=== PATIENT | female | born 1980 | race Caucasian/White ===

== ENCOUNTER 2018-06-05 20:22 | Emergency (ER) | payer MEDICAID ==
[2018-06-05] MEDS ORDERED: Sodium Chloride 0.9% 10 ML Syringe FLUSH PRN (21:07)
[2018-06-05] MEDS ORDERED: Sodium Chloride 0.9% 1,000 ML IV ONE ×2 (21:07→21:46)
[2018-06-05] MEDS ORDERED: Ondansetron 4 MG Tab.DIS PO ONE (21:08)
[2018-06-05] MEDS ORDERED: Ondansetron 4 MG Tab.DIS ONE (21:22)
[2018-06-05] MEDS ORDERED: HYDROmorphone 1 MG/ML Syringe IVPUSH ONE (23:46)
[2018-06-05] MEDS ORDERED: HYDROmorphone 1 MG/ML Syringe ONE (23:50)
--- NOTE | 2018-06-06 01:26 | OR ---
DATE OF PROCEDURE: 06/05/2018 This 38-year-old patient presented to the emergency room with headache, fever, stiff neck. I have been asked to do a spinal tap. I discussed the risks and benefits with the patient. She understands these and an informed consent has been signed. She was placed in a lateral position. Her back was prepped with Betadine x3. A 22-gauge spinal needle was placed at approximately L3-4. Clear spinal fluid was noted. Four test tubes were given, 0.5 to 1 mL of spinal fluid. Her pressures were then measured and they measure at 27. The spinal needle was then removed. A Band-Aid applied to the puncture site. The patient tolerated this procedure well. She suffered no complaints. NAME OF PROCEDURE: Spinal tap for diagnosis. The patient's vital signs are stable. Her color is pink. She is alert, oriented. Shows no signs of complications from the procedure. Kentrell Thomas CRNA /[id number]
[2018-06-06] MEDS ORDERED: cefTRIAXone 2 GM in Sodium Chloride 0.9% 50 ML IV ONE (03:48)
[2018-06-06] MEDS ORDERED: Acyclovir 500 MG/10 ML SDV IV ONE (03:54)
[2018-06-06] MEDS ORDERED: Sodium Chloride 0.9% 250 ML ONE (04:10)
[2018-06-06] MEDS ORDERED: Dextrose 5% in Water 250 ML ONE (04:11)
[2018-06-06] MEDS ORDERED: Vancomycin 1 GM SDV ONE (04:11)
--- NOTE | 2018-06-06 04:54 | EDM.PDOC ---
ED HPI GENERAL MEDICAL PROBLEM - General Chief Complaint: General Stated Complaint: fever, cant walk well, possible lymes Time Seen by Provider: 06/05/18 20:35 Source of Information: Reports: Patient History Limitations: Reports: No Limitations - History of Present Illness INITIAL COMMENTS - FREE TEXT/NARRATIVE: Headache for 4 days. Hx migraines but this is worse. Seen in clinic this am and put on doxycycline. Hasn't taken any because she can't tolerate it. Can't take po. CBC in clinic (looked hemo-concentrated) and UA were normal. Lymes test sent. She feels horrible and thinks she just can't go on. No specific symptoms beside headache. Does have rajan chills but denies fever. 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 Patient returned to clinic on 09/15/2015 with worsening of abscess. Patient had ultrasound, I&D with prescription of bactrim PO BID. - Infectious Disease History Infectious Disease History: Reports: Chicken Pox - Past Surgical History HEENT Surgical History: Reports: Adenoidectomy, Tonsillectomy GI Surgical History: Reports: Appendectomy Female Surgical History: Reports: Section, Tubal Ligation Social & Family History - Tobacco Use Smoking Status *Q: Current Every Day Smoker Years of Tobacco use: 30 Packs/Tins Daily: 0.5 - Caffeine Use Caffeine Use: Reports: Coffee, Soda - Recreational Drug Use Recreational Drug Use: No ED ROS GENERAL - Review of Systems Review Of Systems: See Below Constitutional: Reports: Chills, Malaise HEENT: Reports: No Symptoms Respiratory: Reports: No Symptoms Cardiovascular: Reports: No Symptoms Endocrine: Reports: No Symptoms GI/Abdominal: Reports: No Symptoms : Reports: No Symptoms Musculoskeletal: Reports: Other (general body aches) Skin: Reports: No Symptoms Neurological: Reports: Headache Psychiatric: Reports: No Symptoms Hematologic/Lymphatic: Reports: No Symptoms Immunologic: Reports: No Symptoms ED EXAM, GENERAL - Physical Exam Exam: See Below Exam Limited By: No Limitations General Appearance: Alert, WD/WN, Moderate Distress Eye Exam: Bilateral Eye: EOMI, PERRL Ears: Normal External Exam, Normal TMs Nose: Normal Inspection Throat/Mouth: Normal Inspection, Normal Oropharynx Head: Atraumatic Neck: Supple, Other (Not stiff but complains of neck and back pain when flexing neck) Respiratory/Chest: Lungs Clear Cardiovascular: Regular Rate, Rhythm, No Murmur Peripheral Pulses: 2+: Radial (L), Radial (R) GI/Abdominal: Soft, Non-Tender Back Exam: Normal Inspection Extremities: Normal Inspection Neurological: Alert, Oriented, CN II-XII Intact, Normal Cognition, No Motor/ Sensory Deficits Psychiatric: Normal Affect, Normal Mood Skin Exam: Warm, Dry, Intact Course - Vital Signs Last Recorded V/S: Last Vital Signs Temp 37.3 C 06/06/18 02:08 Pulse 66 06/06/18 02:30 Resp 16 06/06/18 02:30 BP 99/48 L 06/06/18 02:30 Pulse Ox 95 06/06/18 02:30 - Orders/Labs/Meds Orders: Active Orders 24 hr Category Date Time Status Chest 2V [CR] Urgent Exams 06/05/18 21:05 Taken Head wo Cont [CT] Stat Exams 06/05/18 23:00 Taken CULTURE BLOOD [BC] Urgent Lab 06/05/18 21:05 Received CULTURE BLOOD [BC] Urgent Lab 06/05/18 21:05 Received CULTURE CSF + SMEAR [RM] Stat Lab 06/06/18 00:15 Results ENTEROVIRUS RT-PCR Routine Lab 06/06/18 04:01 Ordered HSV 1/2 PCR Routine Lab 06/06/18 03:59 Ordered UA W/MICROSCOPIC [URIN] Urgent Lab 06/05/18 22:59 Ordered [place] VIRUS ANTIBODY, CSF Routine Lab 06/06/18 04:00 Ordered Sodium Chloride 0.9% [Saline Flush] Med 06/05/18 21:07 Active 10 ml FLUSH ASDIRECTED PRN Vancomycin 1,000 mg Med 06/06/18 03:50 Active Dextrose 5% in Water 250 ml IV ONETIME Blood Culture x2 Reflex Set [OM.PC] Urgent Oth 06/05/18 21:06 Ordered Saline Lock Insert [OM.PC] Urgent Oth 06/05/18 21:07 Ordered Medication Orders Vancomycin HCl 1,000 mg/ (Dextrose/Water) 250 mls @ 167 mls/hr IV ONETIME ONE Stop: 06/06/18 05:19 Sodium Chloride (Saline Flush) 10 ml FLUSH ASDIRECTED PRN PRN Reason: Keep Vein Open Last Admin: 06/05/18 21:48 Dose: 10 ml Labs: Laboratory Tests 06/05/18 06/05/18 06/05/18 Range/Units 21:05 21:05 21:05 WBC 7.5 (4.5-11.0) K/uL RBC 5.28 (3.30-5.50) M/uL Hgb 16.6 H (12.0-15.0) g/dL Hct 47.0 (36.0-48.0) % MCV 89 (80-98) fL MCH 31 (27-31) pg MCHC 35 (32-36) % Plt Count 198 (150-400) K/uL Neut % (Auto) 67 H (36-66) % Lymph % (Auto) 26 (24-44) % Mcculloch % (Auto) 6 (2-6) % Eos % (Auto) 1 L (2-4) % Baso % (Auto) 0 (0-1) % Sodium 130 L (140-148) mmol/L Potassium 3.9 (3.6-5.2) mmol/L Chloride 98 L (100-108) mmol/L Carbon Dioxide 20 L (21-32) mmol/L Anion Gap 15.9 H (5.0-14.0) mmol/L BUN 5 L (7-18) mg/dL Creatinine 0.7 (0.6-1.0) mg/dL Est Cr Clr Drug Dosing 96.13 mL/min Estimated GFR (MDRD) > 60 (>60) Glucose 102 (74-106) mg/dL Lactic Acid 1.1 (0.4-2.0) mmol/L Calcium 8.5 (8.5-10.1) mg/dL Total Bilirubin 0.8 D (0.2-1.0) mg/dL AST 14 L (15-37) U/L ALT 21 (12-78) U/L Alkaline Phosphatase 74 (46-116) U/L Total Protein 6.9 (6.4-8.2) g/dL Albumin 3.4 (3.4-5.0) g/dL Globulin 3.5 (2.3-3.5) g/dL Albumin/Globulin Ratio 1.0 L (1.2-2.2) Urine Color Urine Appearance Urine pH (4.5-8.0) Ur Specific Dewey (1.008-1.030) Urine Protein (NEGATIVE) mg/dL Urine Glucose (UA) (NEGATIVE) mg/dL Urine Ketones (NEGATIVE) mg/dL Urine Occult Blood (NEGATIVE) Urine Nitrite (NEGATIVE) Urine Bilirubin (NEGATIVE) Urine Urobilinogen (NORMAL) mg/dL Ur Leukocyte Esterase (NEGATIVE) Urine RBC (0-5) Urine WBC (0-5) Ur Epithelial Cells Amorphous Sediment Urine Bacteria Urine Mucus CSF Tube Number CSF Volume mls CSF Appearance (CLEAR) CSF Color (COLORLESS) CSF WBC (0-5) /ul CSF RBC (0-0) /ul CSF Mononuclear Cells (54-100) % CSF Polymorphonuclear (0-7) % CSF Glucose (40-70) mg/dL CSF Total Protein (15-45) mg/dL 06/05/18 06/06/18 06/06/18 Range/Units 22:59 00:15 00:15 WBC (4.5-11.0) K/uL RBC (3.30-5.50) M/uL Hgb (12.0-15.0) g/dL Hct (36.0-48.0) % MCV (80-98) fL MCH (27-31) pg MCHC (32-36) % Plt Count (150-400) K/uL Neut % (Auto) (36-66) % Lymph % (Auto) (24-44) % Mcculloch % (Auto) (2-6) % Eos % (Auto) (2-4) % Baso % (Auto) (0-1) % Sodium (140-148) mmol/L Potassium (3.6-5.2) mmol/L Chloride (100-108) mmol/L Carbon Dioxide (21-32) mmol/L Anion Gap (5.0-14.0) mmol/L BUN (7-18) mg/dL Creatinine (0.6-1.0) mg/dL Est Cr Clr Drug Dosing mL/min Estimated GFR (MDRD) (>60) Glucose (74-106) mg/dL Lactic Acid (0.4-2.0) mmol/L Calcium (8.5-10.1) mg/dL Total Bilirubin (0.2-1.0) mg/dL AST (15-37) U/L ALT (12-78) U/L Alkaline Phosphatase (46-116) U/L Total Protein (6.4-8.2) g/dL Albumin (3.4-5.0) g/dL Globulin (2.3-3.5) g/dL Albumin/Globulin Ratio (1.2-2.2) Urine Color Yellow Urine Appearance Clear Urine pH 9.0 H (4.5-8.0) Ur Specific Dewey 1.020 (1.008-1.030) Urine Protein Negative (NEGATIVE) mg/dL Urine Glucose (UA) Normal (NEGATIVE) mg/dL Urine Ketones 15 H (NEGATIVE) mg/dL Urine Occult Blood Negative (NEGATIVE) Urine Nitrite Negative (NEGATIVE) Urine Bilirubin Negative (NEGATIVE) Urine Urobilinogen Normal (NORMAL) mg/dL Ur Leukocyte Esterase Negative (NEGATIVE) Urine RBC 0-5 (0-5) Urine WBC 0-5 (0-5) Ur Epithelial Cells Rare Amorphous Sediment Not seen Urine Bacteria Few Urine Mucus Not seen CSF Tube Number 2 CSF Volume 1 mls CSF Appearance Clear (CLEAR) CSF Color Colorless (COLORLESS) CSF WBC 181 H (0-5) /ul CSF RBC 4 H (0-0) /ul CSF Mononuclear Cells 75 (54-100) % CSF Polymorphonuclear 25 H (0-7) % CSF Glucose 47 (40-70) mg/dL CSF Total Protein (15-45) mg/dL 06/06/18 Range/Units 00:15 WBC (4.5-11.0) K/uL RBC (3.30-5.50) M/uL Hgb (12.0-15.0) g/dL Hct (36.0-48.0) % MCV (80-98) fL MCH (27-31) pg MCHC (32-36) % Plt Count (150-400) K/uL Neut % (Auto) (36-66) % Lymph % (Auto) (24-44) % Mcculloch % (Auto) (2-6) % Eos % (Auto) (2-4) % Baso % (Auto) (0-1) % Sodium (140-148) mmol/L Potassium (3.6-5.2) mmol/L Chloride (100-108) mmol/L Carbon Dioxide (21-32) mmol/L Anion Gap (5.0-14.0) mmol/L BUN (7-18) mg/dL Creatinine (0.6-1.0) mg/dL Est Cr Clr Drug Dosing mL/min Estimated GFR (MDRD) (>60) Glucose (74-106) mg/dL Lactic Acid (0.4-2.0) mmol/L Calcium (8.5-10.1) mg/dL Total Bilirubin (0.2-1.0) mg/dL AST (15-37) U/L ALT (12-78) U/L Alkaline Phosphatase (46-116) U/L Total Protein (6.4-8.2) g/dL Albumin (3.4-5.0) g/dL Globulin (2.3-3.5) g/dL Albumin/Globulin Ratio (1.2-2.2) Urine Color Urine Appearance Urine pH (4.5-8.0) Ur Specific Dewey (1.008-1.030) Urine Protein (NEGATIVE) mg/dL Urine Glucose (UA) (NEGATIVE) mg/dL Urine Ketones (NEGATIVE) mg/dL Urine Occult Blood (NEGATIVE) Urine Nitrite (NEGATIVE) Urine Bilirubin (NEGATIVE) Urine Urobilinogen (NORMAL) mg/dL Ur Leukocyte Esterase (NEGATIVE) Urine RBC (0-5) Urine WBC (0-5) Ur Epithelial Cells Amorphous Sediment Urine Bacteria Urine Mucus CSF Tube Number CSF Volume mls CSF Appearance (CLEAR) CSF Color (COLORLESS) CSF WBC (0-5) /ul CSF RBC (0-0) /ul CSF Mononuclear Cells (54-100) % CSF Polymorphonuclear (0-7) % CSF Glucose (40-70) mg/dL CSF Total Protein 51.5 H (15-45) mg/dL Meds: Medications Generic Name Dose Route Start Last Admin Trade Name Freq PRN Reason Stop Dose Admin Vancomycin HCl 1,000 mg/ 250 mls @ 167 mls/hr 06/06/18 03:50 Dextrose/Water IV 06/06/18 05:19 ONETIME ONE Sodium Chloride 10 ml 06/05/18 21:07 06/05/18 21:48 Saline Flush FLUSH 10 ml ASDIRECTED PRN Administration Keep Vein Open Discontinued Medications Generic Name Dose Route Start Last Admin Trade Name Freq PRN Reason Stop Dose Admin Acyclovir 800 mg 06/06/18 03:54 Zovirax 10 mg/kg (800 mg) 06/06/18 03:55 IV ONETIME ONE Hydromorphone HCl 1 mg 06/05/18 23:46 06/05/18 23:52 Dilaudid IVPUSH 06/05/18 23:47 1 mg ONETIME ONE Administration Sodium Chloride 1,000 mls @ 999 mls/hr 06/05/18 21:07 06/05/18 21:48 Normal Saline IV 06/05/18 22:07 999 mls/hr .BOLUS ONE Administration Sodium Chloride 1,000 mls @ 999 mls/hr 06/05/18 21:46 06/05/18 23:47 Normal Saline IV 06/05/18 22:46 Not Given .BOLUS ONE Ceftriaxone Sodium 2 gm/ 50 mls @ 100 mls/hr 06/06/18 03:48 06/06/18 04:31 Sodium Chloride IV 06/06/18 04:17 100 mls/hr ONETIME ONE Administration Sodium Chloride Confirm 06/06/18 04:10 06/06/18 04:33 Normal Saline Administered 06/06/18 04:11 Not Given Dose 250 mls @ as directed .ROUTE .STK-MED ONE Dextrose/Water Confirm 06/06/18 04:11 06/06/18 04:33 Dextrose 5% In Water Administered 06/06/18 04:12 Not Given Dose 250 mls @ as directed .ROUTE .STK-MED ONE Ondansetron HCl 4 mg 06/05/18 21:08 06/05/18 21:48 Zofran Odt PO 06/05/18 21:09 4 mg ONETIME ONE Administration Vancomycin HCl Confirm 06/06/18 04:11 06/06/18 04:33 Vancomycin Administered 06/06/18 04:12 Not Given Dose 1 gm .ROUTE .[employer] ONE - Radiology Interpretation Free Text/Narrative:: CXR nothing acute Head CT 10 cm anneurysm in RT MCA area. Unable to view this. Otherwise neg CT - Re-Assessments/Exams Free Text/Narrative Re-Assessment/Exam: 06/06/18 04:56 This lady was hydrated. Head CT done. Seemed LP would be difficult due to muscle pain and some obesity so Anesthesia requested to do LP. This was done and showed clear fluid with OP 27 cm CSF cell count shows 180 WBC's with 75% mononuclears and 25% poly's slight elevation protein. No bacteria on Gm stain. glucose noted. Culture sent. Hostpitalist service felt she shouldn't be cared for here since ICU closed Discussed with DR Combs at [facility] and he accepted patient. At his direction started IV Rocephin, Acyclovir and Vanc. (Pt says she might have had a pcn rash as a young child but that's all she recalls) Additional CSF studies for HSV and enterovirus. QNS fluid for W Nile. Departure - Departure Time of Disposition: 05:03 Disposition: DC/Tfer to Acute Hospital 02 Condition: Serious Clinical Impression: Meningitis - Discharge Information Referrals: Dulce Hickey CNM [Primary Care Provider] - - My Orders Last 24 Hours: My Active Orders 06/05/18 21:05 Chest 2V [CR] Urgent CULTURE BLOOD [BC] Urgent CULTURE BLOOD [BC] Urgent 06/05/18 21:06 Blood Culture x2 Reflex Set [OM.PC] Urgent 06/05/18 21:07 Sodium Chloride 0.9% [Saline Flush] 10 ml FLUSH ASDIRECTED PRN Saline Lock Insert [OM.PC] Urgent 06/05/18 22:59 UA W/MICROSCOPIC [URIN] Urgent 06/05/18 23:00 Head wo Cont [CT] Stat 06/06/18 00:15 CULTURE CSF + SMEAR [RM] Stat 06/06/18 03:50 Vancomycin 1,000 mg Dextrose 5% in Water 250 ml IV ONETIME 06/06/18 03:59 HSV 1/2 PCR Routine 06/06/18 04:00 [place] VIRUS ANTIBODY, CSF Routine 06/06/18 04:01 ENTEROVIRUS RT-PCR Routine - Assessment/Plan Last 24 Hours: My Active Orders 06/05/18 21:05 Chest 2V [CR] Urgent CULTURE BLOOD [BC] Urgent CULTURE BLOOD [BC] Urgent 06/05/18 21:06 Blood Culture x2 Reflex Set [OM.PC] Urgent 06/05/18 21:07 Sodium Chloride 0.9% [Saline Flush] 10 ml FLUSH ASDIRECTED PRN Saline Lock Insert [OM.PC] Urgent 06/05/18 22:59 UA W/MICROSCOPIC [URIN] Urgent 06/05/18 23:00 Head wo Cont [CT] Stat 06/06/18 00:15 CULTURE CSF + SMEAR [RM] Stat 06/06/18 03:50 Vancomycin 1,000 mg Dextrose 5% in Water 250 ml IV ONETIME 06/06/18 03:59 HSV 1/2 PCR Routine 06/06/18 04:00 [place] VIRUS ANTIBODY, CSF Routine 06/06/18 04:01 ENTEROVIRUS RT-PCR Routine
[2018-06-06 05:25] VITALS: BP 108/53
--- NOTE | 2018-06-06 08:26 | CR ---
CHEST: 2 view CLINICAL HISTORY:Chest pain COMPARISON:2006 FINDINGS: Heart size and pulmonary vascularity is normal. Lung day are clear.. IMPRESSION: No acute cardiopulmonary process or significant change from prior study
[2018-06-08 20:06] LABS: HSV-1 DNA Negative (Negative); HSV-2 DNA Negative (Negative)
== END 2018-06-06 05:24 ==
LOC: JP.ED 20:22
DX: G03.9 Meningitis, unspecified (principal); F17.210 Nicotine dependence, cigarettes, uncomplicated; Z88.0 Allergy status to penicillin; Z88.1 Allergy status to other antibiotic agents; Z88.8 Allergy status to other drugs, medicaments and biological substances
CPT/HCPCS: 36415; 70450; 71046; 80053; 81001; 82945; 83605; 84157; 85025; 87040; 87070; 87205; 87529; 89050; 96361; 96365; 96367; 96368; 96375; 99285; A9270; J0133; J0696; J1170; J3370; J7030; J7050; J7060; 87498

== ENCOUNTER 2018-06-27 16:28 | Emergency (ER) | payer MEDICAID ==
[2018-06-27] MEDS ORDERED: LORazepam 2 MG/ML SDV IVPUSH ONE (19:43)
[2018-06-27] MEDS ORDERED: HYDROmorphone 0.5 MG/0.5 ML Syringe IVPUSH ONE (19:43)
[2018-06-27] MEDS ORDERED: Sodium Chloride 0.9% 10 ML Syringe FLUSH PRN (19:44)
[2018-06-27 19:55] VITALS: BP 151/93
[2018-06-27] MEDS ORDERED: Sodium Chloride 0.9% 1,000 ML IV SCH (20:00)
[2018-06-27] MEDS ORDERED: niCARdipine HCl 25 MG in Sodium Chloride 0.9% 240 ML IV SCH (20:00)
--- NOTE | 2018-06-27 20:00 | EDM.PDOC ---
ED HPI GENERAL MEDICAL PROBLEM - General Chief Complaint: Headache Stated Complaint: HEADACHE Time Seen by Provider: 06/27/18 18:20 Source of Information: Reports: Patient, Family History Limitations: Reports: No Limitations - History of Present Illness INITIAL COMMENTS - FREE TEXT/NARRATIVE: 38-year-old female with a known cerebral aneurysm and recent treatment for meningitis has had 2 days without headache but redeveloped her headache today. No neurologic symptoms other than the headache. She is very anxious and scared, they are going to fix the aneurysm but not until the meningitis is treated. Onset: Sudden (Headache began fairly suddenly earlier this afternoon, 6-7 hours ago) Severity: Moderate Associated Symptoms: Denies: Nausea/Vomiting Headache Pain Score (Numeric/FACES): 10 - Related Data Allergies Allergy/AdvReac Type Severity Reaction Status Date / Time Penicillins Allergy Severe Rash Verified 06/27/18 18:22 amoxicillin Allergy Rash Verified 06/27/18 18:22 phenobarbital Allergy Rash Verified 06/27/18 18:22 Home Meds: Home Meds NK [No Known Home Meds] 06/27/18 [History] Past Medical History HEENT History: Reports: Impaired Vision Respiratory History: Reports: Asthma Genitourinary History: Reports: UTI, Recurrent 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 meningitis Psychiatric History: Reports: Anxiety, Bipolar, Depression, Panic Attack, Psych Hospitalization(s), PTSD, Suicide Attempt Endocrine/Metabolic History: Reports: Diabetes, Gestational Dermatologic History: Reports: Eczema, Other (See Below) Other Dermatologic History: recent treatment for left thigh abscess started on 09/12/2015 with clinic visit with no new prescriptions or interventions completed. Patient returned to clinic on 09/15/2015 with worsening of abscess. Patient had ultrasound, I&D with prescription of bactrim PO BID. - Infectious Disease History Infectious Disease History: Reports: Chicken Pox - Past Surgical History HEENT Surgical History: Reports: Adenoidectomy, Tonsillectomy GI Surgical History: Reports: Appendectomy Female Surgical History: Reports: Section, Tubal Ligation Social & Family History - Tobacco Use Smoking Status *Q: Former Smoker Used Tobacco, but Quit: Yes Month/Year Tobacco Last Used: 3 weeks ago - Caffeine Use Caffeine Use: Reports: Coffee, Soda - Recreational Drug Use Recreational Drug Use: No ED ROS GENERAL - Review of Systems Review Of Systems: See Below Constitutional: Denies: Fever, Chills HEENT: Denies: Vision Change Respiratory: Denies: Shortness of Breath GI/Abdominal: Denies: Abdominal Pain, Nausea, Vomiting Neurological: Reports: Dizziness, Headache. Denies: Paresthesia, Change in Speech Psychiatric: Reports: Anxiety - Physical Exam Exam: See Below Exam Limited By: No Limitations General Appearance: Alert, Anxious Eye Exam: Bilateral Eye: EOMI Head Exam: Atraumatic Respiratory/Chest: No Respiratory Distress Cardiovascular: Regular Rate, Rhythm Neuro Exam (Abbreviated): Alert, Oriented, No Motor/Sensory Deficits Extremities: No: Pedal Edema Psychiatric: Anxious Skin Exam: Warm, Dry Course - Vital Signs Last Recorded V/S: Last Vital Signs Temp 98.0 F 06/27/18 19:54 Pulse 79 06/27/18 19:54 Resp 18 06/27/18 19:54 BP 151/93 H 06/27/18 19:54 Pulse Ox 98 06/27/18 19:54 - Orders/Labs/Meds Orders: Active Orders 24 hr Category Date Time Status Head wo Cont [CT] Stat Exams 06/27/18 18:57 Taken Saline Lock Insert [OM.PC] Routine Oth 06/27/18 19:44 Ordered Labs: Laboratory Tests 06/27/18 06/27/18 Range/Units 19:14 19:14 WBC 7.1 (4.5-11.0) K/uL RBC 5.04 (3.30-5.50) M/uL Hgb 15.7 H (12.0-15.0) g/dL Hct 46.5 (36.0-48.0) % MCV 92 (80-98) fL MCH 31 (27-31) pg MCHC 34 (32-36) % Plt Count 241 (150-400) K/uL Neut % (Auto) 56 (36-66) % Lymph % (Auto) 32 (24-44) % Blaine % (Auto) 7 H (2-6) % Eos % (Auto) 3 (2-4) % Baso % (Auto) 2 H (0-1) % Sodium 138 L (140-148) mmol/L Potassium 4.1 (3.6-5.2) mmol/L Chloride 103 (100-108) mmol/L Carbon Dioxide 28 (21-32) mmol/L Anion Gap 11.1 (5.0-14.0) mmol/L BUN 11 D (7-18) mg/dL Creatinine 0.7 (0.6-1.0) mg/dL Est Cr Clr Drug Dosing 96.13 mL/min Estimated GFR (MDRD) > 60 (>60) Glucose 94 (74-106) mg/dL Calcium 9.1 (8.5-10.1) mg/dL Meds: Medications Discontinued Medications Generic Name Dose Route Start Last Admin Trade Name Freq PRN Reason Stop Dose Admin Hydromorphone HCl 0.5 mg 06/27/18 19:43 06/27/18 19:52 Dilaudid IVPUSH 06/27/18 19:44 0.5 mg ONETIME ONE Administration Nicardipine HCl 25 mg/ Sodium 250 mls @ 50 mls/hr 06/27/18 20:00 06/27/18 20: 03 Chloride IV 5 mg/hr TITRATE AAKASH 50 mls/hr Administration Protocol 5 MG/HR Sodium Chloride 1,000 mls @ 150 mls/hr 06/27/18 20:00 06/27/18 20:04 Normal Saline IV 150 mls/hr ASDIRECTED AAKASH Administration Lorazepam 0.5 mg 06/27/18 19:43 06/27/18 19:55 Ativan IVPUSH 06/27/18 19:44 0.5 mg ONETIME ONE Administration Sodium Chloride 10 ml 06/27/18 19:44 06/27/18 19:56 Saline Flush FLUSH 10 ml ASDIRECTED PRN Administration Keep Vein Open - Re-Assessments/Exams Free Text/Narrative Re-Assessment/Exam: 06/27/18 19:[address] without contrast was obtained and was very concerning for an increasing size an aneurysm with a possible small amount of hemorrhage. This was discussed with neurosurgery at [facility], and transfer was urgently arranged. Labs were stable. She was started on a nicardipine drip to control blood pressure, and given 0.5 mg of Dilaudid in 0.5 mg of IV Ativan for pain and anxiety. Images were sent to [facility]. Departure - Departure Time of Disposition: :18 Disposition: DC/Tfer to Other 70 Condition: Fair Clinical Impression: Intracranial hemorrhage, Cerebral aneurysm - Discharge Information Referrals: Dulce Hickey CNM [Primary Care Provider] - Forms: ED Department Discharge Care Plan Goals: Patient is to be urgently transferred to [facility], to the care of neurosurgery for further evaluation and treatment of a cerebral aneurysm with the possibility of new hemorrhage. - My Orders Last 24 Hours: My Active Orders 06/27/18 18:57 Head wo Cont [CT] Stat 06/27/18 19:44 Saline Lock Insert [OM.PC] Routine - Assessment/Plan Last 24 Hours: My Active Orders 06/27/18 18:57 Head wo Cont [CT] Stat 06/27/18 19:44 Saline Lock Insert [OM.PC] Routine
== END 2018-06-27 20:17 | disposition other institution (70) ==
LOC: JP.ED 16:28
DX: I62.9 Nontraumatic intracranial hemorrhage, unspecified (principal); I67.1 Cerebral aneurysm, nonruptured; Z87.891 Personal history of nicotine dependence; Z88.0 Allergy status to penicillin; Z88.1 Allergy status to other antibiotic agents; Z88.8 Allergy status to other drugs, medicaments and biological substances
CPT/HCPCS: 36415; 70450; 80048; 85025; 96365; 96375; 99285; J1170; J2060; J7030; J7050

== ENCOUNTER 2018-07-16 10:23 | Emergency (ER) | payer MEDICAID ==
[2018-07-16 10:39] VITALS: BP 125/71
--- NOTE | 2018-07-16 12:36 | EDM.PDOC ---
ED HPI GENERAL MEDICAL PROBLEM - General Chief Complaint: Neurological Problem Stated Complaint: HEADACHE AFTER SURGERY Time Seen by Provider: 07/16/18 10:45 Source of Information: Reports: Patient, Family History Limitations: Reports: No Limitations - History of Present Illness INITIAL COMMENTS - FREE TEXT/NARRATIVE: 38-year-old female with a headache and dizziness, she recently had clipping of a cerebral aneurysm. She is worried because she still has persistent headaches so went in the clinic, her primary discussed her condition with [place] and sent her home, however she then called neuro surgery and they recommended she come to [place] to be evaluated. She has no way to get to [place] so she came to the emergency room to be evaluated and transferred. She has no neurologic deficits, it is mostly just anxiety with persistent headache and dizziness. Onset: Unknown/Unsure Associated Symptoms: Reports: Malaise. Denies: Nausea/Vomiting, Weakness Headache Pain Score (Numeric/FACES): 9 - Related Data Allergies Allergy/AdvReac Type Severity Reaction Status Date / Time Penicillins Allergy Severe Rash Verified 07/16/18 10:49 amoxicillin Allergy Rash Verified 07/16/18 10:49 phenobarbital Allergy Rash Verified 07/16/18 10:49 Home Meds: Home Meds Albuterol [Ventolin HFA] 2 puff INH Q4H 07/16/18 [History] Gabapentin [Neurontin] 1 tab PO QID 07/16/18 [History] LORazepam 1 tab PO TID PRN 07/16/18 [History] PARoxetine HCl [Paroxetine HCl] 1 tab PO DAILY 07/16/18 [History] amLODIPine Besylate [Amlodipine Besylate] 1 tab PO DAILY 07/16/18 [History] levETIRAcetam [Levetiracetam] 1 tab PO BID 07/16/18 [History] Past Medical History HEENT History: Reports: Impaired Vision Respiratory History: Reports: Asthma Genitourinary History: Reports: UTI, Recurrent 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 meningitis Psychiatric History: Reports: Anxiety, Bipolar, Depression, Panic Attack, Psych Hospitalization(s), PTSD, Suicide Attempt Endocrine/Metabolic History: Reports: Diabetes, Gestational Dermatologic History: Reports: Eczema, Other (See Below) Other Dermatologic History: recent treatment for left thigh abscess started on 09/12/2015 with clinic visit with no new prescriptions or interventions completed. Patient returned to clinic on 09/15/2015 with worsening of abscess. Patient had ultrasound, I&D with prescription of bactrim PO BID. - Infectious Disease History Infectious Disease History: Reports: Chicken Pox - Past Surgical History HEENT Surgical History: Reports: Adenoidectomy, Tonsillectomy GI Surgical History: Reports: Appendectomy Female Surgical History: Reports: Section, Tubal Ligation Neurological Surgical History: Reports: Other (See Below) Other Neurological Surgeries/Procedures: aneurysm clipped Social & Family History - Tobacco Use Smoking Status *Q: Never Smoker - Caffeine Use Caffeine Use: Reports: Coffee, Soda - Recreational Drug Use Recreational Drug Use: Yes Recreational Drug Type: Reports: Marijuana/Hashish Recreational Drug Use Frequency: Daily ED ROS GENERAL - Review of Systems Review Of Systems: See Below Constitutional: Reports: Malaise. Denies: Fever, Chills HEENT: Denies: Vision Change Respiratory: Denies: Shortness of Breath GI/Abdominal: Denies: Vomiting Skin: Reports: No Symptoms Neurological: Reports: Dizziness, Headache ED EXAM, NEURO - Physical Exam Exam: See Below Exam Limited By: No Limitations General Appearance: Alert, No Apparent Distress Eye Exam: Bilateral Eye: EOMI, PERRL Respiratory/Chest: No Respiratory Distress Neurological: Alert, No Motor/Sensory Deficits, Oriented x 3, Other (Ambulates without difficulty) Psychiatric: Anxious Skin Exam: Warm, Dry Course - Vital Signs Last Recorded V/S: Last Vital Signs Temp 95.2 F L 07/16/18 10:48 Pulse 82 07/16/18 10:48 Resp 16 07/16/18 10:48 BP 125/71 07/16/18 10:48 Pulse Ox 100 07/16/18 10:48 - Re-Assessments/Exams Free Text/Narrative Re-Assessment/Exam: 07/16/18 14:24 Discuss with neurosurgery, a repeat CT scan was recommended. 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 According to neurosurgery this would be expected and no further treatment is necessary. She was given 10 Vicodin for extra pain control, any further medication should come from her primary physician or surgeon. I tried to reassure her that she is progressing as expected. Departure - Departure Time of Disposition: 12:55 Disposition: Home, Self-Care 01 Condition: Good Clinical Impression: Headache Qualifiers: Headache type: tension-type Headache chronicity pattern: unspecified pattern Intractability: not intractable Qualified Code(s): G44.209 - Tension-type headache, unspecified, not intractable - Discharge Information Instructions: General Headache Without Cause Referrals: Dulce Hickey CNM [Primary Care Provider] - Forms: ED Department Discharge Care Plan Goals: Rest, continue your current medications and stay hydrated. Recheck as scheduled.
--- NOTE | 2018-07-16 12:58 | CT ---
Head wo Cont CLINICAL HISTORY: Headache, recent surgery COMPARISON: CT brain 06/27/2018 TECHNIQUE: Transverse scans were obtained from the base of the skull through the vertex without IV co ntrast on a multislice, multidetector CT scanner. Auto dosage reduction and iterative reconstruction techniques employed. FINDINGS: Patient is status post right temporoparietal craniotomy. Patient has had recent aneurysm re pair. There is an aneurysm clip in the left temporal region. There is a small linear dural density wh ich is likely some residual postoperative blood. There is no mass effect.The basal cisterns and sulci over the convexities are normal. The ventricles are normal. IMPRESSION: Status post recent right craniotomy. The linear pleural-based density likely represents r esidual postop, blood No mass effect is identified If clinical symptomatology persists or worsens, repeat exam should be considered
== END 2018-07-16 12:56 | disposition home or self-care (01) ==
LOC: JP.ED 10:23
DX: G44.209 Tension-type headache, unspecified, not intractable (principal); R42 Dizziness and giddiness; J45.909 Unspecified asthma, uncomplicated; Z87.440 Personal history of urinary (tract) infections; F41.9 Anxiety disorder, unspecified; F31.9 Bipolar disorder, unspecified; Z79.899 Other long term (current) drug therapy; Z88.0 Allergy status to penicillin; Z88.1 Allergy status to other antibiotic agents; Z88.8 Allergy status to other drugs, medicaments and biological substances
CPT/HCPCS: 70450; 70450-26; 99284-25

== ENCOUNTER 2018-11-03 16:20 | Emergency (ER) | payer MEDICAID ==
--- NOTE | 2018-11-03 17:28 | EDM.PDOC ---
ED HPI GENERAL MEDICAL PROBLEM - General Chief Complaint: Chest Pain Stated Complaint: CHEST PAINS Time Seen by Provider: 11/03/18 17:11 Source of Information: Reports: Patient History Limitations: Reports: No Limitations - History of Present Illness INITIAL COMMENTS - FREE TEXT/NARRATIVE: This patient complains of chest pain for about the last 2 hours. She said she was at home she was just sitting at the table then suddenly she woke up on the couch in the living room. She thinks maybe she fell. She doesn't know how she got to form one place to the other. She said the pain is severe hurts whenever she breathes deeply or she moves if she lays still it doesn't hurt. She has a history of asthma. She had a brain aneurysm surgery in June 2018 at [facility]. She said there some kind of a problem with the brain and spinal cord and she's been told she need surgery in the future. She has no history of seizures. She [place] being in [place]. 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 meningitis Psychiatric History: Reports: Anxiety, Bipolar, Depression, Panic Attack, Psych Hospitalization(s), PTSD, Suicide Attempt Endocrine/Metabolic History: Reports: Diabetes, Gestational Dermatologic History: Reports: Eczema, Other (See Below) Other Dermatologic History: recent treatment for left thigh abscess started on 09/12/2015 with clinic visit with no new prescriptions or interventions completed. Patient returned to clinic on 09/15/2015 with worsening of abscess. Patient had ultrasound, I&D with prescription of bactrim PO BID. - Infectious Disease History Infectious Disease History: Reports: Chicken Pox - Past Surgical History HEENT Surgical History: Reports: Adenoidectomy, Tonsillectomy GI Surgical History: Reports: Appendectomy Female Surgical History: Reports: Section, Tubal Ligation Neurological Surgical History: Reports: Other (See Below) Other Neurological Surgeries/Procedures: aneurysm clipped Social & Family History - Tobacco Use Smoking Status *Q: Former Smoker Used Tobacco, but Quit: Yes Month/Year Tobacco Last Used: years ago - Caffeine Use Caffeine Use: Reports: Coffee, Soda, Tea - Recreational Drug Use Recreational Drug Use: No ED ROS GENERAL - Review of Systems Review Of Systems: See Below Constitutional: Reports: No Symptoms HEENT: Reports: No Symptoms Respiratory: Reports: Other (See history of present illness) Cardiovascular: Reports: Chest Pain Endocrine: Reports: No Symptoms GI/Abdominal: Reports: No Symptoms : Reports: No Symptoms ED EXAM, GENERAL - Physical Exam Exam: See Below Exam Limited By: No Limitations General Appearance: Alert, WD/WN, Anxious, Moderate Distress Eye Exam: Bilateral Eye: Normal Inspection Nose: Normal Inspection Throat/Mouth: Other (Some bruising to the tip of the tongue looks like she may have bit) Neck: Normal Inspection Respiratory/Chest: No Respiratory Distress, Lungs Clear, Other (Several scratch gross to the upper and mid sternum and moderate to severe sternal tenderness) Cardiovascular: Regular Rate, Rhythm, No Murmur GI/Abdominal: Soft, Non-Tender (Exam to) Back Exam: Normal Inspection Extremities: Normal Inspection Neurological: Alert, Oriented Psychiatric: Normal Affect Skin Exam: Warm, Dry, Other (C start of above) Course - Vital Signs Last Recorded V/S: Last Vital Signs Temp 37.2 C 11/03/18 16:32 Pulse 68 11/03/18 18:36 Resp 10 L 11/03/18 18:36 BP 107/74 11/03/18 18:36 Pulse Ox 97 11/03/18 18:36 - Orders/Labs/Meds Orders: Active Orders 24 hr Category Date Time Status EKG Documentation Completion [RC] ASDIRECTED Care 11/03/18 17:13 Active Chest 2V [CR] Urgent Exams 11/03/18 17:11 Taken Head wo Cont [CT] Stat Exams 11/03/18 17:12 Taken HYDROmorphone [Dilaudid] Med 11/03/18 18:42 Once 1 mg IVPUSH ONETIME ONE levETIRAcetam [Keppra] 3,000 mg Med 11/03/18 18:30 Ordered Sodium Chloride 0.9% [Normal Saline] 100 ml IV ONETIME EKG 12 Lead [EK] Urgent Ther 11/03/18 17:13 Ordered Medication Orders Levetiracetam 3,000 mg/ Sodium (Chloride) 130 mls @ 400 mls/hr IV ONETIME ONE Stop: 11/03/18 18:44 Labs: Laboratory Tests 11/03/18 11/03/18 11/03/18 Range/Units 17:11 17:11 17:12 WBC 9.0 (4.5-11.0) K/uL RBC 5.17 (3.30-5.50) M/uL Hgb 15.9 H (12.0-15.0) g/dL Hct 47.4 (36.0-48.0) % MCV 92 (80-98) fL MCH 31 (27-31) pg MCHC 34 (32-36) % Plt Count 222 (150-400) K/uL Neut % (Auto) 75 H (36-66) % Lymph % (Auto) 19 L (24-44) % [place] % (Auto) 6 (2-6) % Eos % (Auto) 0 L (2-4) % Baso % (Auto) 1 (0-1) % D-Dimer, Quantitative 306 (0.0-400.0) ng/mL Sodium 140 (140-148) mmol/L Potassium 3.7 (3.6-5.2) mmol/L Chloride 104 (100-108) mmol/L Carbon Dioxide 27 (21-32) mmol/L Anion Gap 9.3 (5.0-14.0) mmol/L BUN 4 L D (7-18) mg/dL Creatinine 0.8 (0.6-1.0) mg/dL Est Cr Clr Drug Dosing 84.11 mL/min Estimated GFR (MDRD) > 60 (>60) Glucose 118 H (74-106) mg/dL Calcium 8.9 (8.5-10.1) mg/dL Total Bilirubin 0.4 (0.2-1.0) mg/dL AST 17 (15-37) U/L ALT 26 (12-78) U/L Alkaline Phosphatase 83 (46-116) U/L Troponin I (0.000-0.056) ng/mL Total Protein 7.0 (6.4-8.2) g/dL Albumin 3.6 (3.4-5.0) g/dL Globulin 3.4 (2.3-3.5) g/dL Albumin/Globulin Ratio 1.1 L (1.2-2.2) 11/03/18 Range/Units 17:13 WBC (4.5-11.0) K/uL RBC (3.30-5.50) M/uL Hgb (12.0-15.0) g/dL Hct (36.0-48.0) % MCV (80-98) fL MCH (27-31) pg MCHC (32-36) % Plt Count (150-400) K/uL Neut % (Auto) (36-66) % Lymph % (Auto) (24-44) % [place] % (Auto) (2-6) % Eos % (Auto) (2-4) % Baso % (Auto) (0-1) % D-Dimer, Quantitative (0.0-400.0) ng/mL Sodium (140-148) mmol/L Potassium (3.6-5.2) mmol/L Chloride (100-108) mmol/L Carbon Dioxide (21-32) mmol/L Anion Gap (5.0-14.0) mmol/L BUN (7-18) mg/dL Creatinine (0.6-1.0) mg/dL Est Cr Clr Drug Dosing mL/min Estimated GFR (MDRD) (>60) Glucose (74-106) mg/dL Calcium (8.5-10.1) mg/dL Total Bilirubin (0.2-1.0) mg/dL AST (15-37) U/L ALT (12-78) U/L Alkaline Phosphatase (46-116) U/L Troponin I < 0.017 (0.000-0.056) ng/mL Total Protein (6.4-8.2) g/dL Albumin (3.4-5.0) g/dL Globulin (2.3-3.5) g/dL Albumin/Globulin Ratio (1.2-2.2) Meds: Medications Generic Name Dose Route Start Last Admin Trade Name Freq PRN Reason Stop Dose Admin Levetiracetam 3,000 mg/ Sodium 130 mls @ 400 mls/hr 11/03/18 18:30 Chloride IV 11/03/18 18:44 ONETIME ONE Discontinued Medications Generic Name Dose Route Start Last Admin Trade Name Junior PRN Reason Stop Dose Admin Ketorolac Tromethamine 30 mg 11/03/18 17:40 11/03/18 17:44 Toradol IVPUSH 11/03/18 17:41 30 mg ONETIME ONE Administration - Radiology Interpretation Free Text/Narrative:: Head CT shows no acute abnormality. There is a curvilinear metallic density consistent with an aneurysm clip in the anterior right temporal lobe with surrounding encephalomalacia. - Re-Assessments/Exams Free Text/Narrative Re-Assessment/Exam: 11/03/18 17:29 EKG shows normal sinus rhythm at 87 bpm there is low voltage with right axis deviation no ST or T changes Free Text/Narrative Re-Assessment/Exam: 11/03/18 18:[address] Carlson the neurologist automation machine operator at [facility]. He felt that she should be loaded with Keppra 3000 mg been put on 750 mg twice daily. He referred me to the interventional neurologist Dr. Walker who felt that she could be discharged on medications and then follow-up with Dr. Carlson as well as the neurosurgeon within 10 days. Patient agrees to this. She was medicated with Dilaudid 1 mg IV. Departure - Departure Time of Disposition: 18:42 Disposition: Home, Self-Care 01 Condition: Fair Clinical Impression: Seizure, Chest wall injury Referrals: PCP,None [Primary Care Provider] - Forms: ED Department Discharge Additional Instructions: For a possible seizure take Keppra 750 mg twice daily. You should follow-up with Dr. Carlson at [facility] as well as the neurosurgeon who did your aneurysm surgery. Try to be seen within the next 10 days. For the chest wall injury you can take Percocet 5/325 one tablet every 4 hours as needed. This medication can cause sedation and impaired driving and can lead to addiction. Can also take some ibuprofen - My Orders Last 24 Hours: My Active Orders 11/03/18 17:11 Chest 2V [CR] Urgent 11/03/18 17:12 Head wo Cont [CT] Stat 11/03/18 17:13 EKG Documentation Completion [RC] ASDIRECTED EKG 12 Lead [EK] Urgent 11/03/18 18:30 levETIRAcetam [Keppra] 3,000 mg Sodium Chloride 0.9% [Normal Saline] 100 ml IV ONETIME 11/03/18 18:42 HYDROmorphone [Dilaudid] 1 mg IVPUSH ONETIME ONE - Assessment/Plan Last 24 Hours: My Active Orders 11/03/18 17:11 Chest 2V [CR] Urgent 11/03/18 17:12 Head wo Cont [CT] Stat 11/03/18 17:13 EKG Documentation Completion [RC] ASDIRECTED EKG 12 Lead [EK] Urgent 11/03/18 18:30 levETIRAcetam [Keppra] 3,000 mg Sodium Chloride 0.9% [Normal Saline] 100 ml IV ONETIME 11/03/18 18:42 HYDROmorphone [Dilaudid] 1 mg IVPUSH ONETIME ONE
[2018-11-03] MEDS ORDERED: Ketorolac 30 MG/ML SDV IVPUSH ONE (17:40)
[2018-11-03] MEDS ORDERED: HYDROmorphone 1 MG/ML Syringe IVPUSH ONE (18:42)
[2018-11-03] MEDS ORDERED: levETIRAcetam 1,500 MG in Sodium Chloride 0.9% 100 ML IV ONE ×2 (19:30→19:45)
[2018-11-03 20:22] VITALS: BP 105/66
== END 2018-11-03 20:22 | disposition home or self-care (01) ==
LOC: JP.ED 16:20
DX: S20.319A Abrasion of unspecified front wall of thorax, initial encounter (principal); R56.9 Unspecified convulsions; J45.909 Unspecified asthma, uncomplicated; Z87.891 Personal history of nicotine dependence; X58.XXXA Exposure to other specified factors, initial encounter; Z88.0 Allergy status to penicillin; Z88.1 Allergy status to other antibiotic agents; Z88.8 Allergy status to other drugs, medicaments and biological substances
CPT/HCPCS: 36415; 70450; 71046; 80053; 84484; 85025; 85379; 93005; 96365; 96375; 96376; 99285; J1170; J1885; J1953; J7030

== ENCOUNTER 2018-11-27 14:46 | Emergency (ER) | payer MEDICAID ==
[2018-11-27 15:24] VITALS: BP 144/67
[2018-11-27] MEDS ORDERED: Ondansetron 4 MG/2 ML SDV IVPUSH ONE (16:03)
[2018-11-27] MEDS ORDERED: Sodium Chloride 0.9% 1,000 ML IV ONE (16:03)
[2018-11-27] MEDS ORDERED: HYDROmorphone 0.5 MG/0.5 ML Syringe IVPUSH ONE (16:04)
--- NOTE | 2018-11-27 16:48 | CRLCT ---
Indication: Severe rt sided headache, blurred vision Technique: CT of the head without contrast. Comparison: 11/03/2018 CT Findings: Mature right frontal pterional craniotomy flap and curvilinear aneurysm clip in the right MCA territory. Stable region of encephalomalacia in the right temporal pole. No evidence of suspicious extra-axial collection or acute intracranial hemorrhage. No mass effect or midline shift. No hydrocephalus. Hall-white matter differentiation is preserved. Stable ex vacuo dilation of the right temporal horn. The basal cisterns are clear. The visualized orbits, paranasal sinuses, mastoid air cells are clear. Impression : 1. No evidence of acute intracranial abnormality. 2. Stable region of encephalomalacia in the right temporal pole. Stable mature right frontal pterional craniotomy flap and curvilinear aneurysm clip in the right MCA territory. Please note that all CT scans at this facility use dose modulation, iterative reconstruction, and/or weight-based dosing when appropriate to reduce radiation dose to as low as reasonably achievable. Dictated by Adilson Bentley MD @ Nov 27 2018 4:42PM Signed by Dr. Adilson Bentley @ Nov 27 2018 4:47PM
[2018-11-27] MEDS ORDERED: Ketorolac 30 MG/ML SDV IVPUSH ONE (17:05)
[2018-11-27] MEDS ORDERED: diphenhydrAMINE 50 MG/ML SDV IVPUSH ONE (17:06)
--- NOTE | 2018-11-27 18:00 | EDM.PDOC ---
ED HPI GENERAL MEDICAL PROBLEM - General Chief Complaint: Headache Stated Complaint: HEADACHE Time Seen by Provider: 11/27/18 15:50 Source of Information: Reports: Patient History Limitations: Reports: No Limitations - History of Present Illness INITIAL COMMENTS - FREE TEXT/NARRATIVE: pt has a history od a cerebral aneuyism repair done about 4 monthes ago. She has had seizures and headaches since the repair. She feels that her headaches have gotten alot worse in the past few days. She thinks she may have had 2 more seizures since she had the major one. Her headache today is on the rt side. She did have some visual blurring also in the rt eye. Onset: Gradual, Other ( last 2-3 days. ) Duration: Hour(s): Location: Reports: Head, Neck Associated Symptoms: Reports: Headaches Headache Pain Score (Numeric/FACES): 10 - Related Data Allergies Allergy/AdvReac Type Severity Reaction Status Date / Time Penicillins Allergy Severe Rash Verified 11/27/18 15:38 amoxicillin Allergy Rash Verified 11/27/18 15:38 phenobarbital Allergy Rash Verified 11/27/18 15:38 Home Meds: Home Meds levETIRAcetam [Levetiracetam] 750 mg PO BID 11/27/18 [History] Past Medical History HEENT History: Reports: Impaired Vision Respiratory History: Reports: Asthma Gastrointestinal History: Reports: None Genitourinary History: Reports: UTI, Recurrent 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 meningitis Psychiatric History: Reports: Anxiety, Bipolar, Depression, Panic Attack, Psych Hospitalization(s), PTSD, Suicide Attempt Endocrine/Metabolic History: Reports: Diabetes, Gestational Dermatologic History: Reports: Eczema, Other (See Below) Other Dermatologic History: recent treatment for left thigh abscess started on 09/12/2015 with clinic visit with no new prescriptions or interventions completed. Patient returned to clinic on 09/15/2015 with worsening of abscess. Patient had ultrasound, I&D with prescription of bactrim PO BID. - Infectious Disease History Infectious Disease History: Reports: Chicken Pox - Past Surgical History Head Surgeries/Procedures: Reports: None HEENT Surgical History: Reports: Adenoidectomy, Tonsillectomy Respiratory Surgical History: Reports: None GI Surgical History: Reports: Appendectomy Female Surgical History: Reports: Section, Tubal Ligation Endocrine Surgical History: Reports: None Neurological Surgical History: Reports: Other (See Below) Other Neurological Surgeries/Procedures: aneurysm clipped Musculoskeletal Surgical History: Reports: None Dermatological Surgical History: Reports: None Social & Family History - Family History Family Medical History: Noncontributory - Tobacco Use Smoking Status *Q: Former Smoker Years of Tobacco use: 20 Packs/Tins Daily: 1 Used Tobacco, but Quit: Yes Month/Year Tobacco Last Used: may 2018 Second Hand Smoke Exposure: No - Caffeine Use Caffeine Use: Reports: Coffee, Soda - Recreational Drug Use Recreational Drug Use: No ED ROS GENERAL - Review of Systems Review Of Systems: See Below Constitutional: Reports: No Symptoms HEENT: Reports: No Symptoms Respiratory: Reports: No Symptoms Cardiovascular: Reports: No Symptoms Endocrine: Reports: No Symptoms GI/Abdominal: Reports: No Symptoms : Reports: No Symptoms Musculoskeletal: Reports: No Symptoms - Physical Exam Exam: See Below Text/Narrative:: pt arrived with a severe rt sided headache and blurred vision on the rt. She rated her pain at a 10. Exam Limited By: No Limitations General Appearance: Alert, Severe Distress, Other (pupils equal and react to lite. ) Ears: Normal TMs Nose: Normal Inspection Throat/Mouth: Normal Inspection Head Exam: Atraumatic Neck: Other (mild muscle tenderness in the post cervical area. ) Respiratory/Chest: No Respiratory Distress Cardiovascular: Regular Rate, Rhythm GI/Abdominal: Soft, Non-Tender (Female) Exam: Normal External Exam Rectal (Female) Exam: Deferred Neuro Exam (Abbreviated): Alert, Oriented Course - Vital Signs Last Recorded V/S: Last Vital Signs Temp 36.2 C 11/27/18 15:36 Pulse 74 11/27/18 15:36 Resp 16 11/27/18 15:36 BP 144/67 H 11/27/18 15:36 Pulse Ox 100 11/27/18 15:36 - Orders/Labs/Meds Orders: Active Orders 24 hr Category Date Time Status LEVETIRACETAM (KEPPRA), S Stat Lab 11/27/18 16:05 Received Labs: Laboratory Tests 11/27/18 11/27/18 Range/Units 16:05 16:05 WBC 6.8 (4.5-11.0) K/uL RBC 4.97 (3.30-5.50) M/uL Hgb 14.8 (12.0-15.0) g/dL Hct 45.6 (36.0-48.0) % MCV 92 (80-98) fL MCH 30 (27-31) pg MCHC 33 (32-36) % Plt Count 218 (150-400) K/uL Neut % (Auto) 62 (36-66) % Lymph % (Auto) 31 (24-44) % [place] % (Auto) 5 (2-6) % Eos % (Auto) 1 L (2-4) % Baso % (Auto) 1 (0-1) % Sodium 140 (140-148) mmol/L Potassium 4.1 (3.6-5.2) mmol/L Chloride 105 (100-108) mmol/L Carbon Dioxide 27 (21-32) mmol/L Anion Gap 8.3 (5.0-14.0) mmol/L BUN 8 D (7-18) mg/dL Creatinine 0.6 (0.6-1.0) mg/dL Est Cr Clr Drug Dosing 112.15 mL/min Estimated GFR (MDRD) > 60 (>60) Glucose 95 (74-106) mg/dL Calcium 8.9 (8.5-10.1) mg/dL Meds: Medications Discontinued Medications Generic Name Dose Route Start Last Admin Trade Name Freq PRN Reason Stop Dose Admin Diphenhydramine HCl 50 mg 11/27/18 17:06 11/27/18 17:22 Benadryl IVPUSH 11/27/18 17:07 50 mg ONETIME ONE Administration Hydromorphone HCl 0.5 mg 11/27/18 16:04 11/27/18 16:34 Dilaudid IVPUSH 11/27/18 16:05 0.5 mg ONETIME ONE Administration Sodium Chloride 1,000 mls @ 400 mls/hr 11/27/18 16:03 11/27/18 16:34 Normal Saline IV 11/27/18 18:32 400 mls/hr .BOLUS ONE Administration Ketorolac Tromethamine 30 mg 11/27/18 17:05 11/27/18 17:22 Toradol IVPUSH 11/27/18 17:06 30 mg ONETIME ONE Administration Ondansetron HCl 4 mg 11/27/18 16:03 11/27/18 16:34 Zofran IVPUSH 11/27/18 16:04 4 mg ONETIME ONE Administration - Re-Assessments/Exams Free Text/Narrative Re-Assessment/Exam: 11/27/18 18:02 lab work was obtained and was normal A keppara level was obtained which will rtc later. SHe was given torodol 30mg iv, dilaudid, benadryl for pain. She is much more comfortable. She had a cat scan of the head which was normal. -- unchanged from the previos scan. Departure - Departure Time of Disposition: 18:04 Disposition: Home, Self-Care 01 Condition: Fair Clinical Impression: Right-sided headache, History of seizure - Discharge Information Instructions: Migraine Headache, Jonx-ti-Muck Referrals: PCP,None [Primary Care Provider] - Forms: ED Department Discharge Care Plan Goals: rest, tylenol as needed for pain, percocet /32 1 tab for extreme pain #6 - My Orders Last 24 Hours: My Active Orders 11/27/18 16:05 LEVETIRACETAM (KEPPRA), S Stat - Assessment/Plan Last 24 Hours: My Active Orders 11/27/18 16:05 LEVETIRACETAM (KEPPRA), S Stat
== END 2018-11-27 18:30 | disposition home or self-care (01) ==
LOC: JP.ED 14:46
DX: R51 Headache (principal); J45.909 Unspecified asthma, uncomplicated; R56.9 Unspecified convulsions; Z88.0 Allergy status to penicillin; Z88.1 Allergy status to other antibiotic agents; Z79.899 Other long term (current) drug therapy; Z87.891 Personal history of nicotine dependence
CPT/HCPCS: 36415; 70450; 80048; 80177; 85025; 96361; 96374; 96375; 99284; J1170; J1200; J1885; J2405; J7030

== ENCOUNTER 2019-01-20 19:27 | Emergency (ER) | payer MEDICAID ==
[2019-01-20] MEDS ORDERED: levETIRAcetam 500 MG in Sodium Chloride 0.9% 100 ML IV ONE (19:46)
--- NOTE | 2019-01-20 19:55 | EDM.PDOC ---
ED HPI GENERAL MEDICAL PROBLEM - General Chief Complaint: Neurological Problem Stated Complaint: MEDICAL Time Seen by Provider: 01/20/19 19:35 Source of Information: Reports: Patient, EMS History Limitations: Reports: No Limitations - History of Present Illness INITIAL COMMENTS - FREE TEXT/NARRATIVE: 38-year-old female with a long-standing seizure disorder missed her morning seizure medicine, and while watching TV this evening with her children she had a generalized seizure. She was not incontinent but she did bite the tip of her tongue. She started gaining consciousness and coming out of her postictal state about the time the ambulance arrived. By the time she got to the ER she was back to baseline. Her last seizure was a month ago, she's had several this year. Onset: Sudden Duration: Hour(s): (Within the last hour) Associated Symptoms: Reports: Confusion (Postictal). 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 meningitis Psychiatric History: Reports: Anxiety, Bipolar, Depression, Panic Attack, Psych Hospitalization(s), PTSD, Suicide Attempt Endocrine/Metabolic History: Reports: Diabetes, Gestational Dermatologic History: Reports: Eczema, Other (See Below) Other Dermatologic History: recent treatment for left thigh abscess started on 09/12/2015 with clinic visit with no new prescriptions or interventions completed. Patient returned to clinic on 09/15/2015 with worsening of abscess. Patient had ultrasound, I&D with prescription of bactrim PO BID. - Infectious Disease History Infectious Disease History: Reports: Chicken Pox - Past Surgical History Head Surgeries/Procedures: Reports: None HEENT Surgical History: Reports: Adenoidectomy, Tonsillectomy Respiratory Surgical History: Reports: None GI Surgical History: Reports: Appendectomy Female Surgical History: Reports: Section, Tubal Ligation Endocrine Surgical History: Reports: None Neurological Surgical History: Reports: Other (See Below) Other Neurological Surgeries/Procedures: aneurysm clipped Musculoskeletal Surgical History: Reports: None Dermatological Surgical History: Reports: None Social & Family History - Family History Family Medical History: Noncontributory - Caffeine Use Caffeine Use: Reports: Coffee, Soda ED ROS GENERAL - Review of Systems Review Of Systems: See Below Constitutional: Denies: Fever, Chills HEENT: Reports: No Symptoms Respiratory: Denies: Shortness of Breath Cardiovascular: Denies: Chest Pain GI/Abdominal: Denies: Abdominal Pain, Nausea, Vomiting Neurological: Reports: Confusion. Denies: Headache - Physical Exam Exam: See Below Exam Limited By: No Limitations General Appearance: Alert, No Apparent Distress, Other (Very emotional, tearful) Eye Exam: Bilateral Eye: EOMI, Normal Inspection Throat/Mouth: Other (Slight contusion of the tip of the tongue, no laceration) Head Exam: Atraumatic Neck: Supple, Non-Tender Respiratory/Chest: No Respiratory Distress Neuro Exam (Abbreviated): Alert, Oriented, No Motor/Sensory Deficits Psychiatric: Depressed Mood, Other (Very anxious) Skin Exam: Warm, Dry Course - Vital Signs Last Recorded V/S: Last Vital Signs Temp 97.3 F 01/20/19 19:59 Pulse 105 H 01/20/19 20:47 Resp 14 01/20/19 20:47 BP 97/70 01/20/19 20:47 Pulse Ox 98 01/20/19 20:47 - Orders/Labs/Meds Orders: Active Orders 24 hr Category Date Time Status LEVETIRACETAM (KEPPRA), S Stat Lab 01/20/19 20:07 Received Labs: Laboratory Tests 01/20/19 01/20/19 Range/Units 20:00 20:00 WBC 7.6 (4.5-11.0) K/uL RBC 4.98 (3.30-5.50) M/uL Hgb 15.4 H (12.0-15.0) g/dL Hct 45.5 (36.0-48.0) % MCV 91 (80-98) fL MCH 31 (27-31) pg MCHC 34 (32-36) % Plt Count 159 (150-400) K/uL Neut % (Auto) 52 (36-66) % Lymph % (Auto) 37 (24-44) % [place] % (Auto) 6 (2-6) % Eos % (Auto) 5 H (2-4) % Baso % (Auto) 1 (0-1) % Sodium 139 L (140-148) mmol/L Potassium 4.1 (3.6-5.2) mmol/L Chloride 104 (100-108) mmol/L Carbon Dioxide 23 (21-32) mmol/L Anion Gap 16.1 H (5.0-14.0) mmol/L BUN 7 (7-18) mg/dL Creatinine 0.8 (0.6-1.0) mg/dL Est Cr Clr Drug Dosing 84.11 mL/min Estimated GFR (MDRD) > 60 (>60) Glucose 103 (74-106) mg/dL Calcium 8.7 (8.5-10.1) mg/dL Meds: Medications Discontinued Medications Generic Name Dose Route Start Last Admin Trade Name Freq PRN Reason Stop Dose Admin Levetiracetam 500 mg/ Sodium 105 mls @ 400 mls/hr 01/20/19 19:46 01/20/19 20: 22 Chloride IV 01/20/19 20:00 400 mls/hr ONETIME ONE Administration - Re-Assessments/Exams Free Text/Narrative Re-Assessment/Exam: 01/20/19 20:54 BMP CBC and Keppra level were obtained. BMP and CBC were reassuring, she was given 500 mg of IV Keppra to replace the dose she missed this morning. Return to her regular medications and her Keppra level will be related to her when it' s available. She may want to consider a neuro consult to discuss whether additional medicine will be necessary. Departure - Departure Time of Disposition: 21:07 Disposition: Home, Self-Care 01 Condition: Good Clinical Impression: Seizure - Discharge Information Instructions: Seizure, Adult, [id number] Referrals: PCP,None [Primary Care Provider] - Forms: ED Department Discharge Care Plan Goals: Continue your current medications, return at any time if seizures are recurring and consider seeing her neurologist to discuss any change in medications. We will inform you of your Keppra level when it's available. - My Orders Last 24 Hours: My Active Orders 01/20/19 20:07 LEVETIRACETAM (KEPPRA), S Stat - Assessment/Plan Last 24 Hours: My Active Orders 01/20/19 20:07 LEVETIRACETAM (KEPPRA), S Stat
[2019-01-20 20:48] VITALS: BP 97/70
== END 2019-01-20 21:07 | disposition home or self-care (01) ==
LOC: JP.ED 19:27
DX: G40.909 Epilepsy, unspecified, not intractable, without status epilepticus (principal); Z88.0 Allergy status to penicillin; Z88.8 Allergy status to other drugs, medicaments and biological substances; Z79.899 Other long term (current) drug therapy
CPT/HCPCS: 36415; 80048; 80177; 85025; 96374; 99285; J1953; J7030

== ENCOUNTER 2019-02-07 16:32 | Emergency (ER) | payer MEDICAID ==
[2019-02-07] MEDS ORDERED: levETIRAcetam 500 MG in Sodium Chloride 0.9% 100 ML IV ONE (16:46)
[2019-02-07] MEDS ORDERED: HYDROmorphone 1 MG/ML Syringe IVPUSH ONE (16:49)
--- NOTE | 2019-02-07 16:49 | EDM.PDOC ---
ED HPI GENERAL MEDICAL PROBLEM - General Chief Complaint: Neurological Problem Stated Complaint: PASSED OUT Time Seen by Provider: 02/07/19 16:47 Source of Information: Reports: Patient History Limitations: Reports: No Limitations - History of Present Illness INITIAL COMMENTS - FREE TEXT/NARRATIVE: pt is on keppara. She has had several seizures, The last was about 2 weeks ago. She had a keppara level at that time which was on the lower side.--12. Onset: Today, Sudden, Other (pt found herself on the floor. ) Duration: Minutes: Location: Reports: Generalized Associated Symptoms: Reports: No Other Symptoms Headache Pain Score (Numeric/FACES): 8 - Related Data Allergies Allergy/AdvReac Type Severity Reaction Status Date / Time Penicillins Allergy Severe Rash Verified 02/07/19 16:48 amoxicillin Allergy Rash Verified 02/07/19 16:48 phenobarbital Allergy Rash Verified 02/07/19 16:48 Home Meds: Home Meds levETIRAcetam [Levetiracetam] 750 mg PO BID 11/27/18 [History] Past Medical History HEENT History: Reports: Impaired Vision Respiratory History: Reports: Asthma Gastrointestinal History: Reports: None Genitourinary History: Reports: UTI, 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 meningitis Psychiatric History: Reports: Anxiety, Bipolar, Depression, Panic Attack, Psych Hospitalization(s), PTSD, Suicide Attempt Endocrine/Metabolic History: Reports: Diabetes, Gestational Dermatologic History: Reports: Eczema, Other (See Below) Other Dermatologic History: recent treatment for left thigh abscess started on 09/12/2015 with clinic visit with no new prescriptions or interventions completed. Patient returned to clinic on 09/15/2015 with worsening of abscess. Patient had ultrasound, I&D with prescription of bactrim PO BID. - Infectious Disease History Infectious Disease History: Reports: Chicken Pox - Past Surgical History Head Surgeries/Procedures: Reports: None HEENT Surgical History: Reports: Adenoidectomy, Tonsillectomy Respiratory Surgical History: Reports: None GI Surgical History: Reports: Appendectomy Female Surgical History: Reports: Section, Tubal Ligation Endocrine Surgical History: Reports: None Neurological Surgical History: Reports: Other (See Below) Other Neurological Surgeries/Procedures: aneurysm clipped Musculoskeletal Surgical History: Reports: None Dermatological Surgical History: Reports: None Social & Family History - Family History Family Medical History: Noncontributory - Caffeine Use Caffeine Use: Reports: Coffee, Soda ED ROS GENERAL - Review of Systems Review Of Systems: See Below Constitutional: Reports: No Symptoms HEENT: Reports: No Symptoms Respiratory: Reports: No Symptoms Cardiovascular: Reports: No Symptoms Endocrine: Reports: No Symptoms GI/Abdominal: Reports: No Symptoms : Reports: No Symptoms Musculoskeletal: Reports: No Symptoms Skin: Reports: No Symptoms Neurological: Reports: Headache, Seizure Psychiatric: Reports: No Symptoms - Physical Exam Exam: See Below Text/Narrative:: pt arrived after having a generalized seizure. She is on keppara. She had a cerebral aneuyism repaired a few monthes ago. She has had seizure activity since that time. Exam Limited By: No Limitations General Appearance: Alert, No Apparent Distress, Other (pupils are equal and reactive. ) Ears: Normal TMs Nose: Normal Inspection Throat/Mouth: Normal Inspection Head Exam: Atraumatic Neck: Normal Inspection Respiratory/Chest: No Respiratory Distress Cardiovascular: Regular Rate, Rhythm GI/Abdominal: Soft, Non-Tender (Female) Exam: Deferred Rectal (Female) Exam: Deferred Neuro Exam (Abbreviated): Alert, Oriented, Normal Cognition Back Exam: Normal Inspection Extremities: Normal Inspection Psychiatric: Tearful Course - Vital Signs Last Recorded V/S: Last Vital Signs Temp 36.7 C 02/07/19 16:44 Pulse 52 L 02/07/19 17:27 Resp 16 02/07/19 17:27 BP 116/59 L 02/07/19 17:27 Pulse Ox 95 02/07/19 17:27 - Orders/Labs/Meds Orders: Active Orders 24 hr Category Date Time Status LEVETIRACETAM (KEPPRA), S Stat Lab 02/07/19 17:10 Received Labs: Laboratory Tests 02/07/19 02/07/19 Range/Units 16:43 16:43 WBC 8.3 (4.5-11.0) K/uL RBC 5.02 (3.30-5.50) M/uL Hgb 15.2 H (12.0-15.0) g/dL Hct 46.2 (36.0-48.0) % MCV 92 (80-98) fL MCH 30 (27-31) pg MCHC 33 (32-36) % Plt Count 223 (150-400) K/uL Neut % (Auto) 59 (36-66) % Lymph % (Auto) 33 (24-44) % [place] % (Auto) 6 (2-6) % Eos % (Auto) 2 (2-4) % Baso % (Auto) 1 (0-1) % Sodium 140 (140-148) mmol/L Potassium 4.3 (3.6-5.2) mmol/L Chloride 104 (100-108) mmol/L Carbon Dioxide 25 (21-32) mmol/L Anion Gap 11.2 (5.0-14.0) mmol/L BUN 7 (7-18) mg/dL Creatinine 0.7 (0.6-1.0) mg/dL Est Cr Clr Drug Dosing 96.13 mL/min Estimated GFR (MDRD) > 60 (>60) Glucose 93 (74-106) mg/dL Calcium 8.7 (8.5-10.1) mg/dL Total Bilirubin 0.4 (0.2-1.0) mg/dL AST 14 L (15-37) U/L ALT 15 (12-78) U/L Alkaline Phosphatase 89 (46-116) U/L Total Protein 6.9 (6.4-8.2) g/dL Albumin 3.3 L (3.4-5.0) g/dL Globulin 3.6 H (2.3-3.5) g/dL Albumin/Globulin Ratio 0.9 L (1.2-2.2) Meds: Medications Discontinued Medications Generic Name Dose Route Start Last Admin Trade Name Freq PRN Reason Stop Dose Admin Hydromorphone HCl 1 mg 02/07/19 16:49 02/07/19 17:21 Dilaudid IVPUSH 02/07/19 16:50 1 mg ONETIME ONE Administration Levetiracetam 500 mg/ Sodium 105 mls @ 400 mls/hr 02/07/19 16:46 02/07/19 17: 22 Chloride IV 02/07/19 17:00 400 mls/hr ONETIME ONE Administration - Re-Assessments/Exams Free Text/Narrative Re-Assessment/Exam: 02/07/19 17:50 cat scan of the head did not show any change. She was given keppara 500mg iv. She did have a borderline low level in the past. Departure - Departure Time of Disposition: 17:50 Disposition: Home, Self-Care 01 Condition: Fair Clinical Impression: Seizure cerebral - Discharge Information Referrals: PCP,None [Primary Care Provider] - Forms: ED Department Discharge Care Plan Goals: increase keppara to 1000 mg bid, a level is pending. try to eat something earlier in the day. - My Orders Last 24 Hours: My Active Orders 02/07/19 17:10 LEVETIRACETAM (KEPPRA), S Stat - Assessment/Plan Last 24 Hours: My Active Orders 02/07/19 17:10 LEVETIRACETAM (KEPPRA), S Stat
--- NOTE | 2019-02-07 17:35 | CRLCT ---
INDICATION: Seizure. TECHNIQUE: CT Head without contrast. COMPARISON: 11/27/2018. FINDINGS: Sequelae of right frontal pterional craniotomy. Curvilinear metallic aneurysm clips in the right MCA territory. Stable encephalomalacia in the right temporal lobe. No hydrocephalus. Stable mild ex vacuo dilatation of the temporal horn of the right lateral ventricle. No acute intracranial hemorrhage. No midline shift. No acute skull fracture. Visualized paranasal sinuses and mastoid air cells are clear. IMPRESSION: Stable exam without acute intracranial abnormality. Dictated by Warner Verdugo MD @ 02/07/2019 5:33:51 PM Please note that all CT scans at this facility use dose modulation, iterative reconstruction, and/or weight-based dosing when appropriate to reduce radiation dose to as low as reasonably achievable. Dictated by: Warner Verdugo MD @ 02/07/2019 17:33:56 (Electronically Signed)
[2019-02-07 18:31] VITALS: BP 123/79
== END 2019-02-07 18:37 | disposition home or self-care (01) ==
LOC: JP.ED 16:32
DX: G40.909 Epilepsy, unspecified, not intractable, without status epilepticus (principal); J45.909 Unspecified asthma, uncomplicated; F41.9 Anxiety disorder, unspecified; F31.9 Bipolar disorder, unspecified; Z88.0 Allergy status to penicillin; Z88.1 Allergy status to other antibiotic agents; Z79.899 Other long term (current) drug therapy
CPT/HCPCS: 36415; 70450; 80053; 80177; 85025; 96374; 96375; 99284; J1170; J1953; J7030